=== PATIENT | female | born 1985 | race Caucasian/White ===

== ENCOUNTER 2024-05-20 14:33 | Emergency (ER) | payer OTHER ==
[~2024-05-20] VITALS: Ht 162.6 cm; Wt 80.0 kg
[2024-05-20 14:43] VITALS: O2SAT 99
[2024-05-20 15:35] LABS: BASOPHILS % 0.8 % (0.0-2.0); EOSINOPHILS % 3.4 % (0.0-5.0); HEMATOCRIT. 36.6 % (36.0-48.0); HEMOGLOBIN. 12.2 g/dL (12.0-16.0); MEAN CORPUSCULAR HEMOGLOBIN 27.2 pg (28.0-32.0); MEAN CORPUSCULAR HGB CONC 33.4 g/dL (31.0-37.0); MEAN CORPUSCULAR VOLUME 81.3 fL (81.0-99.0); MEAN PLATELET VOLUME 8.4 fl (7.4-10.4); MONOCYTES % 5.5 % (2.0-8.0); NEUTROPHILS % 65.3 % (40.0-76.0); PLATELET 320 x1000/uL (130-400); RED CELL DISTRIBUTION WIDTH 13.9 % (11.6-14.6); WHITE BLOOD COUNT 10.7 x1000/uL (4.5-11.0)
[2024-05-20 15:42] LABS: CHLORIDE 104 mEq/L (98-107); POTASSIUM 3.7 mEq/L (3.5-5.1); SODIUM 137 mEq/L (136-145)
[2024-05-20 15:44] LABS: CALCIUM 9.2 mg/dL (8.7-10.4); CARBON DIOXIDE 26 mEq/L (21-32)
[2024-05-20 15:49] LABS: CREATININE 0.5 mg/dL (0.6-1.0); GLUCOSE 121 mg/dL (70-105); UREA NITROGEN BLOOD 9 mg/dL (9-23)
[2024-05-20 15:51] LABS: ALANINE AMINOTRANSFERASE 29 IU/L (10-49); ALBUMIN 4.3 g/dL (3.2-4.8); ASPARTATE AMINOTRANSFERASE 18 IU/L (<34); BILIRUBIN TOTAL 0.2 mg/dL (0.1-1.0); PROTEIN TOTAL 6.8 g/dL (6.0-8.3)
[2024-05-20 15:55] LABS: THYROID STIMULATING HORMONE 0.82 uIU/mL (0.55-4.78)
[2024-05-20 16:04] LABS: HCG SCREEN NEGATIVE
[2024-05-20 16:05] LABS: BILIRUBIN DIRECT < 0.1 mg/dL (<=3.0); D-DIMER 0.39 mg/L FEU (<0.50); ETHANOL BLOOD < 10 mg/dL (<10); INR 0.9; PROTHROMBIN TIME 10.3 sec (9.6-11.0); TROPONIN I HIGH SENSITIVITY < 4 ng/L (3.0-34)
[2024-05-20 16:09] VITALS: BP 147/76; PULSE 120; RESP 18; TEMP 36.89184; O2SAT 99
== END 2024-05-20 20:29 | disposition home or self-care (01) ==
LOC: EDBD 14:33 → ER 14:33
DX: R00.2 Palpitations (principal); I10 Essential (primary) hypertension; E11.9 Type 2 diabetes mellitus without complications
CPT/HCPCS: 36415; 71045; 80048; 80076; 80320; 83880; 84443; 84484; 84703; 85025; 85379; 93005; 99291; G0480